=== PATIENT | female | born 1935 | race Caucasian/White ===

== ENCOUNTER 2022-04-26 20:08 | Inpatient (IN) | payer MEDICARE, BC ==
[~2022-04-26] VITALS: Ht 154.9 cm; Wt 41.6 kg
[2022-04-26] MEDS ORDERED: ACETAMINOPHEN TAB 650MG DOSE (2X325MG) PO ONE (20:25)
[2022-04-26] MEDS ORDERED: LISI20TA33 PO (20:32)
[2022-04-26] MEDS ORDERED: ASPI81CH33 PO (20:32)
[2022-04-26] MEDS ORDERED: PROV108A INH (20:32)
[2022-04-26] MEDS ORDERED: XARE2.5T PO (20:32)
[2022-04-26] MEDS ORDERED: AMLO1TAB25 PO (20:32)
[2022-04-26 20:48] LABS: BASO % 0.6 % (0.0-1.0); EOS % 0.7 % (0.0-3.0); HEMATOCRIT 39.5 % (36.0-47.0); HEMOGLOBIN 12.5 g/dl (12.0-15.5); LYMPH % 9.3 % (24.0-44.0); MEAN CORPUSCULAR HEMOGLOBIN 27.4 pg (27.0-33.0); MEAN CORPUSCULAR HGB CONC 31.6 g/dl (32.0-36.5); MEAN CORPUSCULAR VOLUME 86.6 fl (80.0-96.0); MONO % 6.9 % (2.0-8.0); NEUTROPHILS # 8.8 10^3/uL (1.5-8.5); NEUTROPHILS % 82.2 % (36.0-66.0); PLATELET COUNT, AUTOMATED 235 10^3/uL (150-450); RED BLOOD COUNT 4.56 10^6/uL (4.00-5.40); WHITE BLOOD COUNT 10.7 10^3/uL (4.0-10.0)
[2022-04-26 20:49] LABS: BASO # 0.1 10^3/uL (0.0-0.2); EOS # 0.1 10^3/uL (0.0-0.5); MONO # 0.7 10^3/uL (0.0-0.8)
[2022-04-26] MEDS ORDERED: IPRATROPIUM 0.5MG/ALBUTEROL 2.5MG INH SOL UD 3ML (DUONEB) NEB ONE (20:50)
[2022-04-26 21:12] LABS: CK-MB VALUE MASS 1.2 NG/ML (<3.6); MB/CK RELATIVE INDEX 2.35 (< OR =4)
[2022-04-26 21:13] LABS: ALBUMIN 3.7 GM/DL (3.2-5.2); ALT/SGPT 34 U/L (12-78); BILIRUBIN,DIRECT 0.2 MG/DL (0.0-0.2); BILIRUBIN,TOTAL 0.7 MG/DL (0.2-1.0); BLOOD UREA NITROGEN 16 MG/DL (7-18); CALCIUM LEVEL 8.9 MG/DL (8.8-10.2); CARBON DIOXIDE LEVEL 26 MEQ/L (21-32); CHLORIDE LEVEL 108 MEQ/L (98-107); CREATININE FOR GFR 0.79 MG/DL (0.55-1.30); GLOMERULAR FILTRATION RATE > 60.0 (>32); GLUCOSE, FASTING 93 MG/DL (70-100); NT-PRO BNP 6300 PG/ML (<450); POTASSIUM SERUM 4.1 MEQ/L (3.5-5.1); SODIUM LEVEL 140 MEQ/L (136-145); TOTAL PROTEIN 6.8 GM/DL (6.4-8.2)
[2022-04-26 21:21] LABS: ABG BASE EXCESS 1.1 (-2.0-2.0); ABG HCO3 24.9 MEQ/L (22.0-26.0); ABG O2 SATURATION 94.3 % (95.0-99.0); ABG PARTIAL PRESSURE CO2 36.8 mmHg (35.0-45.0); ABG PARTIAL PRESSURE O2 65.8 mmHg (75.0-100.0); ABG STANDARD HCO3 25.4 MEQ/L (22.0-26.0); ABG pH (ARTERIAL) 7.448 UNITS (7.350-7.450)
[2022-04-26] MEDS ORDERED: methylPREDNISolone 125MG 2ML VIAL IV ONE (22:00)
[2022-04-26] MEDS ORDERED: HOME MED LIST COMPLETE! XX SCH (22:10)
[2022-04-26] MEDS ORDERED: ALPR0.25 PO (22:10)
[2022-04-26] MEDS ORDERED: MAALOX 30 ML SUSP *UDC PO PRN (23:20)
[2022-04-26] MEDS ORDERED: MOM 30ML SUSPENSION UDC PO PRN (23:20)
[2022-04-26] MEDS ORDERED: guaiFENesin DM LIQ 10ML UD PO PRN (23:20)
[2022-04-27] VITALS (12 sets, daily range): BP systolic 150–184; BP diastolic 50–82; O2SAT 90–99
[2022-04-27] MEDS ORDERED: PILL CUTTER 1 EACH XX PRN (00:20)
[2022-04-27] MEDS ORDERED: **hydrALAZINE HCL** 25 MG TAB PO ONE (02:00)
[2022-04-27] MEDS: IPRATROPIUM 0.5MG/ALBUTEROL 2.5MG INH SOL UD 3ML (DUONEB) NEB SCH ×4 (03:46→19:35)
[2022-04-27 06:05] LABS: HEMATOCRIT 38.3 % (36.0-47.0); MEAN CORPUSCULAR HEMOGLOBIN 27.1 pg (27.0-33.0); MEAN CORPUSCULAR HGB CONC 31.3 g/dl (32.0-36.5); MEAN CORPUSCULAR VOLUME 86.7 fl (80.0-96.0); PLATELET COUNT, AUTOMATED 214 10^3/uL (150-450); RED BLOOD COUNT 4.42 10^6/uL (4.00-5.40)
[2022-04-27 06:16] LABS: PROTHROMBIN TIME 13.6 SECONDS (12.7-14.5)
[2022-04-27 06:17] LABS: PARTIAL THROMBOPLASTIN TIME 31.8 SECONDS (25.9-37.0)
[2022-04-27 06:29] LABS: BLOOD UREA NITROGEN 17 MG/DL (7-18); CALCIUM LEVEL 8.8 MG/DL (8.8-10.2); CARBON DIOXIDE LEVEL 21 MEQ/L (21-32); CHLORIDE LEVEL 108 MEQ/L (98-107); CREATININE FOR GFR 0.76 MG/DL (0.55-1.30); GLOMERULAR FILTRATION RATE > 60.0 (>32); GLUCOSE, FASTING 128 MG/DL (70-100); MAGNESIUM LEVEL 2.2 MG/DL (1.8-2.4); POTASSIUM SERUM 3.7 MEQ/L (3.5-5.1); SODIUM LEVEL 141 MEQ/L (136-145)
[2022-04-27] MEDS: methylPREDNISolone 40MG 1ML VIAL IV SCH ×2 (08:42→20:21)
[2022-04-27] MEDS: guaiFENesin ER 600 MG TAB PO SCH ×2 (08:43→20:21)
[2022-04-27] MEDS: ASPIRIN 81 MG CHEW TABLET PO SCH (08:43)
[2022-04-27] MEDS: RIVAROXABAN 10MG TAB (XARELTO) PO SCH ×2 (08:55→20:21)
[2022-04-27] MEDS: NYSTATIN CREAM 15 GM TOP SCH ×2 (09:00→20:22)
[2022-04-27] MEDS: ALBUTEROL SULFATE 2.5 MG/0.5 ML INH NEB SOLN NEB PRN ×2 (09:12→18:09)
[2022-04-27] MEDS: ACETAMINOPHEN TAB 650MG DOSE (2X325MG) PO PRN (18:57)
[2022-04-27] MEDS: ALPRAZolam 0.25 MG TAB PO PRN (20:21)
[2022-04-27] MEDS ORDERED: IBUPROFEN 600MG TAB PO PRN (22:20)
[2022-04-27] MEDS: traMADol 50 MG TAB PO PRN (22:34)
[2022-04-28] MEDS: IPRATROPIUM 0.5MG/ALBUTEROL 2.5MG INH SOL UD 3ML (DUONEB) NEB SCH ×3 (02:00→13:20)
[2022-04-28 05:35] VITALS: BP 137/50
[2022-04-28 08:31] LABS: HEMATOCRIT 37.5 % (36.0-47.0); MEAN CORPUSCULAR HEMOGLOBIN 27.8 pg (27.0-33.0); MEAN CORPUSCULAR VOLUME 86.8 fl (80.0-96.0); PLATELET COUNT, AUTOMATED 262 10^3/uL (150-450); RED BLOOD COUNT 4.32 10^6/uL (4.00-5.40); WHITE BLOOD COUNT 14.2 10^3/uL (4.0-10.0)
[2022-04-28] MEDS: RIVAROXABAN 10MG TAB (XARELTO) PO SCH ×2 (08:40→20:06)
[2022-04-28] MEDS: guaiFENesin ER 600 MG TAB PO SCH ×2 (08:40→20:04)
[2022-04-28] MEDS: ASPIRIN 81 MG CHEW TABLET PO SCH (08:40)
[2022-04-28] MEDS: NYSTATIN CREAM 15 GM TOP SCH ×2 (08:45→20:06)
[2022-04-28] MEDS: traMADol 50 MG TAB PO PRN ×2 (08:54→20:05)
[2022-04-28] MEDS ORDERED: predniSONE 20 MG TAB PO SCH (09:00)
[2022-04-28 09:06] LABS: ALBUMIN 3.5 GM/DL (3.2-5.2); ALT/SGPT 47 U/L (12-78); BILIRUBIN,TOTAL 0.3 MG/DL (0.2-1.0); BLOOD UREA NITROGEN 22 MG/DL (7-18); CALCIUM LEVEL 8.9 MG/DL (8.8-10.2); CARBON DIOXIDE LEVEL 25 MEQ/L (21-32); CHLORIDE LEVEL 110 MEQ/L (98-107); CREATININE FOR GFR 0.83 MG/DL (0.55-1.30); GLOMERULAR FILTRATION RATE > 60.0 (>32); GLUCOSE, FASTING 142 MG/DL (70-100); POTASSIUM SERUM 3.8 MEQ/L (3.5-5.1); SODIUM LEVEL 141 MEQ/L (136-145); TOTAL PROTEIN 6.9 GM/DL (6.4-8.2)
[2022-04-28] MEDS ORDERED: FUROSEMIDE 40MG/4ML VIAL (J1940) IV ONE (11:00)
[2022-04-28 11:42] LABS: CK-MB VALUE MASS 2.1 NG/ML (<3.6); MB/CK RELATIVE INDEX 3.44 (< OR =4)
[2022-04-28 14:00] VITALS: BP 122/46
[2022-04-28] MEDS: ACETAMINOPHEN TAB 650MG DOSE (2X325MG) PO PRN (18:19)
[2022-04-28] MEDS: methylPREDNISolone 125MG 2ML VIAL IV SCH (20:04)
[2022-04-28] MEDS: ALPRAZolam 0.25 MG TAB PO PRN (21:07)
[2022-04-28 22:00] VITALS: BP 159/80; O2SAT 91
[2022-04-29] MEDS: RAMELTEON 8 MG TAB (ROZEREM) PO PRN (01:42)
[2022-04-29 05:37] VITALS: BP 160/74
[2022-04-29 06:12] LABS: HEMATOCRIT 39.6 % (36.0-47.0); HEMOGLOBIN 12.6 g/dl (12.0-15.5); MEAN CORPUSCULAR HEMOGLOBIN 27.7 pg (27.0-33.0); MEAN CORPUSCULAR HGB CONC 31.8 g/dl (32.0-36.5); PLATELET COUNT, AUTOMATED 270 10^3/uL (150-450); RED BLOOD COUNT 4.55 10^6/uL (4.00-5.40)
[2022-04-29 07:14] LABS: FREE T4 0.81 NG/DL (0.76-1.46); MAGNESIUM LEVEL 2.4 MG/DL (1.8-2.4); THYROID STIMULATING HORMONE 0.056 uIU/ML (0.358-3.740)
[2022-04-29] MEDS: IPRATROPIUM 0.5MG/ALBUTEROL 2.5MG INH SOL UD 3ML (DUONEB) NEB SCH ×4 (07:16→20:59)
[2022-04-29 07:17] LABS: CK-MB VALUE MASS 1.4 NG/ML (<3.6); MB/CK RELATIVE INDEX 3.18 (< OR =4)
[2022-04-29 07:23] LABS: BLOOD UREA NITROGEN 35 MG/DL (7-18); CHLORIDE LEVEL 107 MEQ/L (98-107); GLOMERULAR FILTRATION RATE > 60.0 (>32); GLUCOSE, FASTING 135 MG/DL (70-100); SODIUM LEVEL 144 MEQ/L (136-145)
[2022-04-29 07:24] LABS: ALBUMIN 3.6 GM/DL (3.2-5.2); ALT/SGPT 37 IU/L (0-32); BILIRUBIN,TOTAL 0.4 MG/DL (0.2-1.0); CALCIUM LEVEL 9.3 MG/DL (8.8-10.2); CARBON DIOXIDE LEVEL 26 mmol/L (20-29); TOTAL PROTEIN 6.9 GM/DL (6.4-8.2)
[2022-04-29] MEDS: ALBUTEROL SULFATE 2.5 MG/0.5 ML INH NEB SOLN NEB PRN ×2 (07:30→14:31)
[2022-04-29] MEDS ORDERED: FUROSEMIDE 40MG/4ML VIAL (J1940) IV SCH (09:00)
[2022-04-29] MEDS: FUROSEMIDE 40MG/4ML VIAL (J1940) IV SCH (10:26)
[2022-04-29] MEDS: ASPIRIN 81 MG CHEW TABLET PO SCH (10:27)
[2022-04-29] MEDS: guaiFENesin ER 600 MG TAB PO SCH ×2 (10:28→20:24)
[2022-04-29] MEDS: RIVAROXABAN 10MG TAB (XARELTO) PO SCH ×2 (10:28→20:24)
[2022-04-29] MEDS: ONDANSETRON 4MG 2ML VIAL IV PRN ×2 (10:28→16:44)
[2022-04-29] MEDS: NYSTATIN CREAM 15 GM TOP SCH ×2 (10:29→20:25)
[2022-04-29] MEDS: methylPREDNISolone 125MG 2ML VIAL IV SCH ×2 (10:29→20:24)
[2022-04-29 13:52] LABS: MAGNESIUM LEVEL 2.5 MG/DL (1.8-2.4); PHOSPHORUS LEVEL 4.7 MG/DL (2.5-4.9)
[2022-04-29 14:00] VITALS: BP 136/66
[2022-04-29] MEDS: traMADol 50 MG TAB PO PRN (16:45)
[2022-04-29 16:57] LABS: CK-MB VALUE MASS < 1.0 NG/ML (<3.6); CPK CREATINE PHOSPHOKINASE 46 U/L (26-192); MB/CK RELATIVE INDEX 2.17 (< OR =4)
[2022-04-29] MEDS ORDERED: ISOVUE-370 76% 100ML VIAL As Ordered ONE (16:59)
[2022-04-29] MEDS ORDERED: LevoFLOXacin 500 MG TABLET PO ONE (19:20)
[2022-04-29] MEDS: ALPRAZolam 0.25 MG TAB PO PRN (21:58)
[2022-04-29 22:00] VITALS: BP 137/67
[2022-04-29 23:25] VITALS: O2SAT 94
[2022-04-30] MEDS: RAMELTEON 8 MG TAB (ROZEREM) PO PRN (00:09)
[2022-04-30] MEDS: traMADol 50 MG TAB PO PRN ×2 (00:09→17:32)
[2022-04-30] MEDS: IPRATROPIUM 0.5MG/ALBUTEROL 2.5MG INH SOL UD 3ML (DUONEB) NEB SCH ×4 (02:00→19:44)
[2022-04-30 06:00] VITALS: BP 133/59
[2022-04-30 06:11] LABS: HEMATOCRIT 40.2 % (36.0-47.0); HEMOGLOBIN 12.7 g/dl (12.0-15.5); MEAN CORPUSCULAR HEMOGLOBIN 27.4 pg (27.0-33.0); MEAN CORPUSCULAR HGB CONC 31.6 g/dl (32.0-36.5); MEAN CORPUSCULAR VOLUME 86.8 fl (80.0-96.0); PLATELET COUNT, AUTOMATED 283 10^3/uL (150-450); RED BLOOD COUNT 4.63 10^6/uL (4.00-5.40)
[2022-04-30 06:45] LABS: ALBUMIN 3.7 GM/DL (3.2-5.2); BILIRUBIN,TOTAL 0.3 MG/DL (0.2-1.0); CALCIUM LEVEL 8.8 MG/DL (8.8-10.2); CREATININE FOR GFR 1.15 MG/DL (0.55-1.30); GLOMERULAR FILTRATION RATE 47.9 (>32); POTASSIUM SERUM 4.4 MEQ/L (3.5-5.1); TOTAL PROTEIN 7.1 GM/DL (6.4-8.2)
[2022-04-30] MEDS: RIVAROXABAN 10MG TAB (XARELTO) PO SCH ×2 (09:00→21:34)
[2022-04-30] MEDS: guaiFENesin ER 600 MG TAB PO SCH ×2 (09:10→21:34)
[2022-04-30] MEDS: methylPREDNISolone 125MG 2ML VIAL IV SCH ×2 (09:11→21:35)
[2022-04-30] MEDS: ASPIRIN 81 MG CHEW TABLET PO SCH (09:11)
[2022-04-30] MEDS: FUROSEMIDE 40MG/4ML VIAL (J1940) IV SCH (09:11)
[2022-04-30] MEDS: NYSTATIN CREAM 15 GM TOP SCH ×2 (09:19→21:00)
[2022-04-30] MEDS: ONDANSETRON 4MG 2ML VIAL IV PRN (13:49)
[2022-04-30 14:00] VITALS: BP 135/53
[2022-04-30] MEDS ORDERED: FUROSEMIDE 40MG/4ML VIAL (J1940) IV SCH (17:00)
[2022-04-30] MEDS: ALBUTEROL SULFATE 2.5 MG/0.5 ML INH NEB SOLN NEB PRN (17:02)
[2022-04-30] MEDS: LevoFLOXacin 250 MG TABLET PO SCH (17:32)
[2022-04-30 19:22] LABS: CALCIUM LEVEL 9.5 MG/DL (8.8-10.2); CREATININE FOR GFR 1.29 MG/DL (0.55-1.30); GLOMERULAR FILTRATION RATE 41.9 (>32); MAGNESIUM LEVEL 2.6 MG/DL (1.8-2.4); POTASSIUM SERUM 4.2 MEQ/L (3.5-5.1)
[2022-04-30 21:08] LABS: CK-MB VALUE MASS < 1.0 NG/ML (<3.6); CPK CREATINE PHOSPHOKINASE 34 U/L (26-192); MB/CK RELATIVE INDEX 2.94 (< OR =4)
[2022-04-30 22:00] VITALS: O2SAT 94
[2022-04-30] MEDS ORDERED: LORazepam 0.5 MG TAB PO ONE (22:40)
[2022-04-30] MEDS: METOPROLOL TART 12.5 MG PER 1/2 TAB PO SCH (22:58)
[2022-05-01] MEDS: traMADol 50 MG TAB PO PRN (01:12)
[2022-05-01] MEDS: LEVALBUTEROL 1.25 MG/0.5 ML CONCENTRATE NEB INH SCH ×4 (02:00→19:09)
[2022-05-01] MEDS: IPRATROPIUM 0.02% SOLN 0.5MG 2.5ML NEB INH SCH ×4 (02:00→19:09)
[2022-05-01 06:00] VITALS: BP 143/59
[2022-05-01 06:27] LABS: HEMOGLOBIN 13.2 g/dl (12.0-15.5); MEAN CORPUSCULAR HEMOGLOBIN 27.5 pg (27.0-33.0); MEAN CORPUSCULAR HGB CONC 31.4 g/dl (32.0-36.5); MEAN CORPUSCULAR VOLUME 87.5 fl (80.0-96.0); PLATELET COUNT, AUTOMATED 286 10^3/uL (150-450); WHITE BLOOD COUNT 12.7 10^3/uL (4.0-10.0)
[2022-05-01 07:18] LABS: ALBUMIN 3.9 GM/DL (3.2-5.2); BILIRUBIN,TOTAL 0.4 MG/DL (0.2-1.0); CALCIUM LEVEL 9.1 MG/DL (8.8-10.2); CREATININE FOR GFR 1.31 MG/DL (0.55-1.30); GLOMERULAR FILTRATION RATE 41.2 (>32); POTASSIUM SERUM 3.9 MEQ/L (3.5-5.1); TOTAL PROTEIN 7.2 GM/DL (6.4-8.2)
[2022-05-01] MEDS: guaiFENesin ER 600 MG TAB PO SCH ×2 (08:27→19:57)
[2022-05-01] MEDS: ASPIRIN 81 MG CHEW TABLET PO SCH (08:27)
[2022-05-01] MEDS: RIVAROXABAN 10MG TAB (XARELTO) PO SCH ×2 (08:27→19:58)
[2022-05-01] MEDS: methylPREDNISolone 125MG 2ML VIAL IV SCH ×2 (08:27→19:58)
[2022-05-01] MEDS: NYSTATIN CREAM 15 GM TOP SCH ×2 (08:28→19:57)
[2022-05-01] MEDS ORDERED: zolPIDEM TARTRATE 5 MG TAB PO PRN (09:20)
[2022-05-01] MEDS: LORazepam 0.5 MG TAB PO PRN (10:21)
[2022-05-01 14:00] VITALS: BP 125/60
[2022-05-01] MEDS: LevoFLOXacin 250 MG TABLET PO SCH (17:44)
[2022-05-01] MEDS: METOPROLOL TART 12.5 MG PER 1/2 TAB PO SCH (19:57)
[2022-05-01 22:00] VITALS: BP 120/56
[2022-05-01 22:02] VITALS: O2SAT 92
[2022-05-02 00:36] VITALS: O2SAT 92
[2022-05-02] MEDS: LEVALBUTEROL 1.25 MG/0.5 ML CONCENTRATE NEB INH SCH ×4 (01:36→19:56)
[2022-05-02] MEDS: IPRATROPIUM 0.02% SOLN 0.5MG 2.5ML NEB INH SCH ×2 (01:36→07:09)
[2022-05-02] MEDS: ONDANSETRON 4MG 2ML VIAL IV PRN (02:39)
[2022-05-02 07:29] LABS: HEMATOCRIT 43.7 % (36.0-47.0); HEMOGLOBIN 13.5 g/dl (12.0-15.5); MEAN CORPUSCULAR HEMOGLOBIN 27.4 pg (27.0-33.0); MEAN CORPUSCULAR HGB CONC 30.9 g/dl (32.0-36.5); MEAN CORPUSCULAR VOLUME 88.6 fl (80.0-96.0); PLATELET COUNT, AUTOMATED 307 10^3/uL (150-450); RED BLOOD COUNT 4.93 10^6/uL (4.00-5.40); WHITE BLOOD COUNT 16.4 10^3/uL (4.0-10.0)
[2022-05-02] MEDS ORDERED: ALBUTEROL SULFATE 2.5 MG/0.5 ML INH NEB SOLN NEB PRN (07:50)
[2022-05-02 08:02] LABS: CREATININE FOR GFR 1.24 MG/DL (0.55-1.30); GLOMERULAR FILTRATION RATE 43.9 (>32); POTASSIUM SERUM 4.2 MEQ/L (3.5-5.1)
[2022-05-02 08:03] LABS: ALBUMIN 3.6 GM/DL (3.2-5.2); BILIRUBIN,TOTAL 0.4 MG/DL (0.2-1.0); CALCIUM LEVEL 9.5 MG/DL (8.8-10.2)
[2022-05-02 08:53] LABS: ABG BASE EXCESS 1.9 (-2.0-2.0); ABG HCO3 25.1 MEQ/L (22.0-26.0); ABG O2 SATURATION 95.1 % (95.0-99.0); ABG PARTIAL PRESSURE CO2 35.1 mmHg (35.0-45.0); ABG PARTIAL PRESSURE O2 73.3 mmHg (75.0-100.0); ABG STANDARD HCO3 26.1 MEQ/L (22.0-26.0); ABG TOTAL CO2 26.2 MEQ/L (23.0-31.0); ABG pH (ARTERIAL) 7.473 UNITS (7.350-7.450)
[2022-05-02] MEDS: RIVAROXABAN 10MG TAB (XARELTO) PO SCH ×2 (09:00→21:32)
[2022-05-02] MEDS: PANTOPRAZOLE 40MG TAB (PROTONIX) PO SCH (09:00)
[2022-05-02] MEDS: ASPIRIN 81 MG CHEW TABLET PO SCH (09:00)
[2022-05-02] MEDS: guaiFENesin ER 600 MG TAB PO SCH ×2 (09:00→21:33)
[2022-05-02] MEDS: NYSTATIN CREAM 15 GM TOP SCH ×2 (09:00→21:00)
[2022-05-02] MEDS ORDERED: zolPIDEM TARTRATE 5 MG TAB PO PRN (09:05)
[2022-05-02] MEDS ORDERED: ALPRAZolam 0.25 MG TAB PO PRN (09:05)
[2022-05-02] MEDS ORDERED: LORazepam 0.5 MG TAB PO ONE (09:15)
[2022-05-02] MEDS: NICOTINE 21MG/24HR 1 EA TRANSDERMAL TD SCH (09:36)
[2022-05-02] MEDS: methylPREDNISolone 125MG 2ML VIAL IV SCH (09:36)
[2022-05-02 14:00] VITALS: BP 123/51
[2022-05-02] MEDS ORDERED: FUROSEMIDE 20MG/2ML VIAL (J1940) IV ONE (15:30)
[2022-05-02] MEDS ORDERED: HALOPERIDOL 5MG/ML VIAL (J1630 PER 1) IV ONE (16:30)
[2022-05-02] MEDS ORDERED: diphenhydrAMINE 50MG/ML VIAL (J1200) IV ONE (18:30)
[2022-05-02] MEDS: LevoFLOXacin 250 MG TABLET PO SCH (18:31)
[2022-05-02] MEDS ORDERED: QUEtiapine FUMARATE 25 MG TAB PO SCH (21:00)
[2022-05-02] MEDS: traMADol 50 MG TAB PO PRN (21:37)
[2022-05-02 22:00] VITALS: BP 117/50
[2022-05-02 23:58] VITALS: O2SAT 96
[2022-05-03] VITALS (9 sets, daily range): BP systolic 114–138; BP diastolic 45–81; O2SAT 90–97
[2022-05-03] MEDS: LEVALBUTEROL 1.25 MG/0.5 ML CONCENTRATE NEB INH SCH ×4 (02:00→19:27)
[2022-05-03] MEDS ORDERED: CEPACOL LOZENGE PO PRN (05:55)
[2022-05-03 06:29] LABS: HEMATOCRIT 42.6 % (36.0-47.0); HEMOGLOBIN 13.4 g/dl (12.0-15.5); MEAN CORPUSCULAR HEMOGLOBIN 27.3 pg (27.0-33.0); MEAN CORPUSCULAR HGB CONC 31.5 g/dl (32.0-36.5); MEAN CORPUSCULAR VOLUME 86.9 fl (80.0-96.0); PLATELET COUNT, AUTOMATED 269 10^3/uL (150-450); WHITE BLOOD COUNT 19.7 10^3/uL (4.0-10.0)
[2022-05-03 07:05] LABS: ALBUMIN 3.4 GM/DL (3.2-5.2); BILIRUBIN,TOTAL 0.5 MG/DL (0.2-1.0); CALCIUM LEVEL 9.2 MG/DL (8.8-10.2); CREATININE FOR GFR 1.23 MG/DL (0.55-1.30); GLOMERULAR FILTRATION RATE 44.3 (>32); POTASSIUM SERUM 3.8 MEQ/L (3.5-5.1); TOTAL PROTEIN 6.6 GM/DL (6.4-8.2)
[2022-05-03] MEDS: NYSTATIN CREAM 15 GM TOP SCH ×2 (09:00→21:00)
[2022-05-03] MEDS: NICOTINE 21MG/24HR 1 EA TRANSDERMAL TD SCH (09:00)
[2022-05-03] MEDS: ASPIRIN 81 MG CHEW TABLET PO SCH (09:44)
[2022-05-03] MEDS: PANTOPRAZOLE 40MG TAB (PROTONIX) PO SCH (09:44)
[2022-05-03] MEDS: guaiFENesin ER 600 MG TAB PO SCH ×2 (09:44→21:58)
[2022-05-03] MEDS: RIVAROXABAN 10MG TAB (XARELTO) PO SCH ×2 (09:51→21:58)
[2022-05-03 11:48] LABS: ABG HCO3 26.5 MEQ/L (22.0-26.0); ABG O2 SATURATION 91.4 % (95.0-99.0); ABG PARTIAL PRESSURE CO2 33.5 mmHg (35.0-45.0); ABG PARTIAL PRESSURE O2 59.1 mmHg (75.0-100.0); ABG STANDARD HCO3 27.9 MEQ/L (22.0-26.0); ABG TOTAL CO2 27.5 MEQ/L (23.0-31.0); ABG pH (ARTERIAL) 7.516 UNITS (7.350-7.450)
[2022-05-03] MEDS: ACETAMINOPHEN TAB 650MG DOSE (2X325MG) PO PRN (12:00)
[2022-05-03 12:46] LABS: CALCIUM LEVEL 8.7 MG/DL (8.8-10.2); CREATININE FOR GFR 1.13 MG/DL (0.55-1.30); GLOMERULAR FILTRATION RATE 48.8 (>32); MAGNESIUM LEVEL 2.8 MG/DL (1.8-2.4); PHOSPHORUS LEVEL 3.4 MG/DL (2.5-4.9); POTASSIUM SERUM 3.6 MEQ/L (3.5-5.1)
[2022-05-03] MEDS: KCL 10MEQ/100ML SWI (KRUN) 10 MEQ in IV 1 EA IV ONE ×2 (13:05→14:05)
[2022-05-03 13:41] LABS: CK-MB VALUE MASS < 1.0 NG/ML (<3.6); CPK CREATINE PHOSPHOKINASE 31 U/L (26-192); MB/CK RELATIVE INDEX 3.23 (< OR =4)
[2022-05-03] MEDS: ONDANSETRON 4MG 2ML VIAL IV PRN (14:02)
[2022-05-03] MEDS: FUROSEMIDE 20MG/2ML VIAL (J1940) IV ONE ×2 (14:04→15:18)
[2022-05-03] MEDS ORDERED: POTASSIUM CHLORIDE 10MEQ SR TABLET PO ONE (15:15)
[2022-05-03] MEDS: LevoFLOXacin 250 MG TABLET PO SCH (17:35)
[2022-05-03] MEDS ORDERED: METOPROLOL TART 12.5 MG PER 1/2 TAB PO SCH (21:00)
[2022-05-03] MEDS ORDERED: diphenhydrAMINE 50MG CAP PO ONE (22:00)
[2022-05-04] MEDS ORDERED: ALPRAZolam 0.25 MG TAB PO ONE (01:00)
[2022-05-04] MEDS: LEVALBUTEROL 1.25 MG/0.5 ML CONCENTRATE NEB INH SCH ×4 (02:00→19:26)
[2022-05-04 03:19] VITALS: O2SAT 96
[2022-05-04 05:49] VITALS: BP 154/72
[2022-05-04 06:28] LABS: HEMATOCRIT 42.9 % (36.0-47.0); HEMOGLOBIN 13.5 g/dl (12.0-15.5); MEAN CORPUSCULAR HEMOGLOBIN 27.7 pg (27.0-33.0); MEAN CORPUSCULAR HGB CONC 31.5 g/dl (32.0-36.5); MEAN CORPUSCULAR VOLUME 88.1 fl (80.0-96.0); PLATELET COUNT, AUTOMATED 257 10^3/uL (150-450); RED BLOOD COUNT 4.87 10^6/uL (4.00-5.40); WHITE BLOOD COUNT 19.6 10^3/uL (4.0-10.0)
[2022-05-04] MEDS: LORazepam 0.5 MG TAB PO PRN ×2 (06:40→22:11)
[2022-05-04 06:59] LABS: ALBUMIN 3.4 GM/DL (3.2-5.2); BILIRUBIN,TOTAL 0.7 MG/DL (0.2-1.0); CALCIUM LEVEL 8.9 MG/DL (8.8-10.2); CREATININE FOR GFR 1.22 MG/DL (0.55-1.30); GLOMERULAR FILTRATION RATE 44.7 (>32); POTASSIUM SERUM 4.4 MEQ/L (3.5-5.1); TOTAL PROTEIN 6.5 GM/DL (6.4-8.2)
[2022-05-04] MEDS ORDERED: FUROSEMIDE 20MG/2ML VIAL (J1940) IV STA (07:31)
[2022-05-04 07:43] VITALS: BP 154/73
[2022-05-04] MEDS ORDERED: DOCUSATE SODIUM 100MG CAPSULE PO SCH (09:00)
[2022-05-04] MEDS: NYSTATIN CREAM 15 GM TOP SCH ×2 (09:00→20:16)
[2022-05-04] MEDS: NICOTINE 21MG/24HR 1 EA TRANSDERMAL TD SCH ×3 (09:00→11:23)
[2022-05-04 10:07] LABS: ABG BASE EXCESS 4.5 (-2.0-2.0); ABG HCO3 26.8 MEQ/L (22.0-26.0); ABG O2 SATURATION 92.3 % (95.0-99.0); ABG PARTIAL PRESSURE CO2 32.9 mmHg (35.0-45.0); ABG PARTIAL PRESSURE O2 60.2 mmHg (75.0-100.0); ABG STANDARD HCO3 28.4 MEQ/L (22.0-26.0); ABG TOTAL CO2 27.8 MEQ/L (23.0-31.0); ABG pH (ARTERIAL) 7.529 UNITS (7.350-7.450)
[2022-05-04] MEDS: ASPIRIN 81 MG CHEW TABLET PO SCH (11:11)
[2022-05-04] MEDS: RIVAROXABAN 10MG TAB (XARELTO) PO SCH ×2 (11:11→20:15)
[2022-05-04] MEDS: PANTOPRAZOLE 40MG TAB (PROTONIX) PO SCH (11:11)
[2022-05-04] MEDS: guaiFENesin ER 600 MG TAB PO SCH ×2 (11:11→20:15)
[2022-05-04] MEDS: ONDANSETRON 4MG 2ML VIAL IV PRN ×2 (12:26→20:15)
[2022-05-04 14:00] VITALS: BP 114/60
[2022-05-04] MEDS ORDERED: HALOPERIDOL 5MG/ML VIAL (J1630 PER 1) IV ONE (16:45)
[2022-05-04] MEDS ORDERED: MIRALAX *UNIT DOSE* 17GM PACKET PO PRN (19:40)
[2022-05-04 19:47] VITALS: BP 108/60
[2022-05-04] MEDS: diphenhydrAMINE 50MG/ML VIAL (J1200) IV ONE ×2 (20:15→22:47)
[2022-05-04 22:00] VITALS: O2SAT 97
[2022-05-05] MEDS: LEVALBUTEROL 1.25 MG/0.5 ML CONCENTRATE NEB INH SCH ×4 (02:00→19:21)
[2022-05-05 05:35] VITALS: BP 145/75
[2022-05-05 06:18] LABS: HEMATOCRIT 45.5 % (36.0-47.0); MEAN CORPUSCULAR HEMOGLOBIN 27.4 pg (27.0-33.0); MEAN CORPUSCULAR HGB CONC 30.8 g/dl (32.0-36.5); PLATELET COUNT, AUTOMATED 272 10^3/uL (150-450); RED BLOOD COUNT 5.11 10^6/uL (4.00-5.40); WHITE BLOOD COUNT 22.4 10^3/uL (4.0-10.0)
[2022-05-05 06:46] LABS: ALBUMIN 3.6 GM/DL (3.2-5.2); BILIRUBIN,TOTAL 0.7 MG/DL (0.2-1.0); CALCIUM LEVEL 9.1 MG/DL (8.8-10.2); CREATININE FOR GFR 1.38 MG/DL (0.55-1.30); GLOMERULAR FILTRATION RATE 38.8 (>32); POTASSIUM SERUM 4.5 MEQ/L (3.5-5.1); TOTAL PROTEIN 6.8 GM/DL (6.4-8.2)
[2022-05-05] MEDS ORDERED: ROCURONIUM BROMIDE 50 MG/5 ML VIAL IV ONE (08:50)
[2022-05-05] MEDS ORDERED: MIDAZOLAM INJ 2MG/2ML VIAL (J2250 PER 1MG) IV STA (08:50)
[2022-05-05] MEDS ORDERED: KETAMINE HCL 200 MG/20 ML VIAL IV ONE (08:50)
[2022-05-05] MEDS: guaiFENesin ER 600 MG TAB PO SCH ×2 (08:59→20:21)
[2022-05-05] MEDS: ASPIRIN 81 MG CHEW TABLET PO SCH (08:59)
[2022-05-05] MEDS: PANTOPRAZOLE 40MG TAB (PROTONIX) PO SCH (08:59)
[2022-05-05] MEDS: NICOTINE 14 MG/24 HR TRANSDERMAL TD SCH (09:00)
[2022-05-05] MEDS: RIVAROXABAN 10MG TAB (XARELTO) PO SCH ×2 (09:09→20:22)
[2022-05-05] MEDS: NYSTATIN 500,000 U/5 ML SUSP UDC SS SCH ×4 (10:16→20:21)
[2022-05-05] MEDS: SENNA 8.6 MG TAB (SENOKOT) PO SCH (10:16)
[2022-05-05] MEDS: FLUCONAZOLE 50MG TABLET PO SCH (10:16)
[2022-05-05 11:21] LABS: INR 1.61; PROTHROMBIN TIME 19.6 SECONDS (12.7-14.5)
[2022-05-05 14:00] VITALS: BP 134/67
[2022-05-05 17:55] LABS: APPEARANCE, URINE CLEAR (CLEAR); BACTERIA, URINE AUTO NEGATIVE (NEGATIVE); BILIRUBIN, URINE AUTO NEGATIVE (NEGATIVE); BLOOD, URINE BLOOD 1+ (NEGATIVE); COLOR, URINE YELLOW (YELLOW); GLUCOSE, URINE (UA) AUTO NEGATIVE (NEGATIVE); KETONE, URINE AUTO NEGATIVE (NEGATIVE); LEUKOCYTE ESTERASE, URINE AUTO TRACE (NEGATIVE); MUCUS, URINE SMALL (NEGATIVE); NITRITE, URINE AUTO NEGATIVE (NEGATIVE); PROTEIN, URINE AUTO 1+ mg/dL (NEGATIVE); RBC, URINE AUTO 0 /HPF (0-3); SPECIFIC GRAVITY URINE AUTO 1.027 (1.002-1.035); SQUAMOUS EPITHELIAL CELL UR AU 1 /HPF (0-6); UROBILINOGEN, URINE AUTO 0.2 mg/dL (0.0-2.0); WBC, URINE AUTO 3 /HPF (0-3)
[2022-05-05] MEDS ORDERED: diphenhydrAMINE 50MG/ML VIAL (J1200) IV ONE (19:30)
[2022-05-05 20:30] VITALS: O2SAT 95
[2022-05-05] MEDS ORDERED: diphenhydrAMINE 25MG CAP PO SCH (21:00)
[2022-05-05 21:15] VITALS: BP 122/68
[2022-05-05] MEDS: LORazepam 0.5 MG TAB PO PRN (22:13)
[2022-05-05] MEDS ORDERED: diphenhydrAMINE 50MG CAP PO ONE (23:20)
[2022-05-06] MEDS: LEVALBUTEROL 1.25 MG/0.5 ML CONCENTRATE NEB INH SCH ×4 (02:00→20:42)
[2022-05-06] MEDS ORDERED: QUEtiapine FUMARATE 25 MG TAB PO ONE (03:30)
[2022-05-06 05:20] VITALS: BP 133/60
[2022-05-06] MEDS ORDERED: diazePAM 5MG TABLET PO ONE (06:00)
[2022-05-06 06:27] LABS: HEMATOCRIT 41.1 % (36.0-47.0); HEMOGLOBIN 12.7 g/dl (12.0-15.5); MEAN CORPUSCULAR HEMOGLOBIN 26.9 pg (27.0-33.0); MEAN CORPUSCULAR HGB CONC 30.9 g/dl (32.0-36.5); MEAN CORPUSCULAR VOLUME 87.1 fl (80.0-96.0); PLATELET COUNT, AUTOMATED 225 10^3/uL (150-450); RED BLOOD COUNT 4.72 10^6/uL (4.00-5.40); WHITE BLOOD COUNT 20.6 10^3/uL (4.0-10.0)
[2022-05-06 06:52] LABS: ALBUMIN 3.3 GM/DL (3.2-5.2); BILIRUBIN,TOTAL 0.6 MG/DL (0.2-1.0); CREATININE FOR GFR 1.04 MG/DL (0.55-1.30); GLOMERULAR FILTRATION RATE 53.7 (>32); POTASSIUM SERUM 4.2 MEQ/L (3.5-5.1); TOTAL PROTEIN 6.2 GM/DL (6.4-8.2)
[2022-05-06] MEDS: guaiFENesin ER 600 MG TAB PO SCH ×2 (09:43→20:06)
[2022-05-06] MEDS: PANTOPRAZOLE 40MG TAB (PROTONIX) PO SCH (09:43)
[2022-05-06] MEDS: SENNA 8.6 MG TAB (SENOKOT) PO SCH (09:43)
[2022-05-06] MEDS: FLUCONAZOLE 50MG TABLET PO SCH (09:43)
[2022-05-06] MEDS: NYSTATIN 500,000 U/5 ML SUSP UDC SS SCH ×4 (09:43→20:05)
[2022-05-06] MEDS: ASPIRIN 81 MG CHEW TABLET PO SCH (09:43)
[2022-05-06] MEDS: NICOTINE 14 MG/24 HR TRANSDERMAL TD SCH (09:44)
[2022-05-06 09:45] VITALS: O2SAT 95
[2022-05-06] MEDS: RIVAROXABAN 10MG TAB (XARELTO) PO SCH ×2 (09:47→20:05)
[2022-05-06 14:00] VITALS: BP 116/59
[2022-05-06 20:39] VITALS: BP 119/60
[2022-05-06] MEDS: traMADol 50 MG TAB PO PRN (20:58)
[2022-05-06] MEDS ORDERED: diphenhydrAMINE 25MG CAP PO SCH (21:00)
[2022-05-07] MEDS: LEVALBUTEROL 1.25 MG/0.5 ML CONCENTRATE NEB INH SCH ×3 (01:46→13:13)
[2022-05-07 05:15] VITALS: BP 136/61
[2022-05-07 08:31] LABS: HEMATOCRIT 39.6 % (36.0-47.0); HEMOGLOBIN 12.3 g/dl (12.0-15.5); MEAN CORPUSCULAR HEMOGLOBIN 27.3 pg (27.0-33.0); MEAN CORPUSCULAR HGB CONC 31.1 g/dl (32.0-36.5); MEAN CORPUSCULAR VOLUME 87.8 fl (80.0-96.0); PLATELET COUNT, AUTOMATED 236 10^3/uL (150-450); RED BLOOD COUNT 4.51 10^6/uL (4.00-5.40); WHITE BLOOD COUNT 17.5 10^3/uL (4.0-10.0)
[2022-05-07] MEDS: guaiFENesin ER 600 MG TAB PO SCH (08:36)
[2022-05-07] MEDS: FLUCONAZOLE 50MG TABLET PO SCH (08:36)
[2022-05-07] MEDS: ASPIRIN 81 MG CHEW TABLET PO SCH (08:36)
[2022-05-07] MEDS: NYSTATIN 500,000 U/5 ML SUSP UDC SS SCH ×2 (08:36→13:00)
[2022-05-07] MEDS: PANTOPRAZOLE 40MG TAB (PROTONIX) PO SCH (08:36)
[2022-05-07] MEDS: RIVAROXABAN 10MG TAB (XARELTO) PO SCH (08:36)
[2022-05-07] MEDS: SENNA 8.6 MG TAB (SENOKOT) PO SCH (08:37)
[2022-05-07] MEDS: NICOTINE 14 MG/24 HR TRANSDERMAL TD SCH (08:37)
[2022-05-07] MEDS ORDERED: DIFL50TA PO (11:17)
[2022-05-07] MEDS ORDERED: NYST50SS SS (11:17)
[2022-05-07] MEDS ORDERED: SPIR1CAP INH (11:20)
[2022-05-07 14:00] VITALS: BP 134/59
== END 2022-05-07 14:43 | disposition home or self-care (01) | DRG 193 ==
LOC: M ED 20:08 → M ED INP 20:09 → M MSPAV 04-27 01:02 → OBSVTOIN 04-27 08:24
PROVIDERS: ADMIT Family Medicine; ATTEND Internal Medicine
PROC: B246ZZZ Ultrasonography of Right and Left Heart (ICD-10-PCS; principal; 2022-04-28)
DX: J18.9 Pneumonia, unspecified organism (principal); J96.21 Acute and chronic respiratory failure with hypoxia; J81.0 Acute pulmonary edema; J44.0 Chronic obstructive pulmonary disease with (acute) lower respiratory infection; J44.1 Chronic obstructive pulmonary disease with (acute) exacerbation; I47.1 Supraventricular tachycardia; E46 Unspecified protein-calorie malnutrition; B37.0 Candidal stomatitis; N17.9 Acute kidney failure, unspecified; I73.9 Peripheral vascular disease, unspecified; Z95.828 Presence of other vascular implants and grafts; Z95.1 Presence of aortocoronary bypass graft; I11.0 Hypertensive heart disease with heart failure; K21.9 Gastro-esophageal reflux disease without esophagitis; R21 Rash and other nonspecific skin eruption; Z90.79 Acquired absence of other genital organ(s); F17.210 Nicotine dependence, cigarettes, uncomplicated; F32.A Depression, unspecified; F41.9 Anxiety disorder, unspecified; Z79.82 Long term (current) use of aspirin; Z79.899 Other long term (current) drug therapy; Z20.822 Contact with and (suspected) exposure to COVID-19; E05.90 Thyrotoxicosis, unspecified without thyrotoxic crisis or storm; G47.00 Insomnia, unspecified; I16.0 Hypertensive urgency; I27.21 Secondary pulmonary arterial hypertension; B34.1 Enterovirus infection, unspecified; E87.6 Hypokalemia; I50.9 Heart failure, unspecified; D72.829 Elevated white blood cell count, unspecified; T50.1X5A Adverse effect of loop [high-ceiling] diuretics, initial encounter; K59.00 Constipation, unspecified